=== PATIENT | female | born 1995 | race Caucasian/White ===

== ENCOUNTER 2019-09-14 10:30 | Inpatient (IN) | payer BC ==
[~2019-09-14] VITALS: Ht 160 cm; Wt 66.6 kg
[~2019-09-14 10:30] MED LIST: DOCU-144 PO; IBUP-1542 PO
[2019-09-14] MEDS ORDERED: LACTATED RINGER'S 1,000 ML IV PRN (11:32)
[2019-09-14 11:34] VITALS: Ht 160 cm; Wt 66.6 kg
[2019-09-14] MEDS ORDERED: LIDOCAINE 1% (MPF) 30 ML INJ INJ PRN (12:00)
[2019-09-14] MEDS ORDERED: OXYTOCIN 30 UNITS/LR 500 ML IV PRN (12:00)
[2019-09-14] MEDS ORDERED: CARBOPROST 250 MCG INJ IM PRN (12:00)
[2019-09-14] MEDS ORDERED: MINERAL OIL LIGHT 10 ML VIAL TOP PRN (12:00)
[2019-09-14] MEDS ORDERED: OXYTOCIN 30 UNITS/LR 500 ML IV SCH ×3 (12:00→22:30)
[2019-09-14] MEDS ORDERED: MISOPROSTOL 200 MCG TAB PR PRN (12:00)
[2019-09-14] MEDS ORDERED: AMPICILLIN 2 GM/NS (PMX) 100 ML IV ONE (12:00)
[2019-09-14] MEDS ORDERED: IBUPROFEN 600 MG TAB PO PRN (12:00)
[2019-09-14] MEDS ORDERED: BUTORPHANOL 2 MG INJ IV PRN ×2 (12:00)
[2019-09-14] MEDS ORDERED: METHYLERGONOVINE 0.2 MG INJ IM PRN (12:00)
[2019-09-14] MEDS ORDERED: MISOPROSTOL 50 MCG CAPSULE PO SCH (14:00)
[2019-09-14] MEDS ORDERED: FENTAnyl 2MCG/ML-ROPIV 0.2% 100 ML ONE (18:10)
[2019-09-14] MEDS: AMPICILLIN 1 GM/NS (PMX) 50 ML IV SCH ×2 (18:20→22:08)
[2019-09-14] MEDS: LACTATED RINGER'S 1,000 ML IV SCH ×2 (18:22→22:08)
[2019-09-14] MEDS ORDERED: TRIMETHOBENZAMIDE 100 MG/ML VIAL IM PRN (18:30)
[2019-09-14] MEDS ORDERED: DIPHENHYDRAMINE 50 MG INJ IV PRN (18:30)
[2019-09-14] MEDS ORDERED: NALOXONE (0.4 MG/ML) INJ IV PRN (18:30)
[2019-09-14] MEDS ORDERED: FENTAnyl 2MCG/ML-ROPIV 0.2% 100 ML BAG EPI SCH (18:30)
[2019-09-14] MEDS ORDERED: ONDANSETRON 4 MG INJ IV PRN (18:30)
[2019-09-15] MEDS: AMPICILLIN 1 GM/NS (PMX) 50 ML IV SCH (01:56)
[2019-09-15] MEDS ORDERED: OXYTOCIN 30 UNITS/LR 500 ML IV SCH (03:20)
[2019-09-15] MEDS ORDERED: SENNA/DOCUSATE NA (8.6MG/50MG) TAB PO PRN (03:30)
[2019-09-15] MEDS ORDERED: NACL 0.9% 3 ML SYG IV SCH (03:30)
[2019-09-15] MEDS ORDERED: BENZOCAINE 20% 56 ML SPRAY TOP PRN (03:30)
[2019-09-15] MEDS ORDERED: METHYLERGONOVINE 0.2 MG INJ IM PRN (03:30)
[2019-09-15] MEDS ORDERED: MISOPROSTOL 200 MCG TAB PR PRN (03:30)
[2019-09-15] MEDS ORDERED: WITCH HAZEL/GLYCERIN PAD PR PRN (03:30)
[2019-09-15] MEDS ORDERED: OXYTOCIN 30 UNITS/LR 500 ML IV PRN (03:30)
[2019-09-15] MEDS ORDERED: CARBOPROST 250 MCG INJ IM PRN (03:30)
[2019-09-15] MEDS ORDERED: ONDANSETRON 4 MG INJ IV PRN (03:30)
[2019-09-15] MEDS ORDERED: ACETAMINOPHEN 325 MG TAB PO PRN (03:30)
[2019-09-15 04:50] VITALS: BP 122/79; PULSE 63; RESP 18
[2019-09-15] MEDS: LANOLIN HPA 1 PKT TOP PRN (05:35)
[2019-09-15] MEDS: IBUPROFEN 600 MG TAB PO SCH ×4 (05:35→23:37)
[2019-09-15] MEDS: LACTATED RINGER'S 1,000 ML IV SCH (07:55)
[2019-09-15 08:30] VITALS: BP 108/68; PULSE 73; RESP 18
[2019-09-15] MEDS: SENNA/DOCUSATE NA (8.6MG/50MG) TAB PO SCH ×2 (09:15→21:18)
[2019-09-15 12:15] VITALS: BP 115/79; PULSE 62; RESP 18
[2019-09-15 16:00] VITALS: BP 95/56; PULSE 66; RESP 18
[2019-09-15 20:30] VITALS: BP 107/67; PULSE 68; RESP 18
[2019-09-16 04:11] VITALS: BP 109/67; PULSE 62; RESP 18
[2019-09-16] MEDS: IBUPROFEN 600 MG TAB PO SCH ×4 (06:02→23:47)
[2019-09-16] MEDS: LANOLIN HPA 1 PKT TOP PRN ×2 (08:44→12:50)
[2019-09-16] MEDS: SENNA/DOCUSATE NA (8.6MG/50MG) TAB PO SCH ×2 (08:44→21:40)
[2019-09-16 09:07] VITALS: BP 101/71; PULSE 62; RESP 18
[2019-09-16 16:00] VITALS: BP 102/57; PULSE 65; RESP 18
[2019-09-16 20:50] VITALS: BP 108/65; PULSE 71; RESP 17
[2019-09-17 04:00] VITALS: BP 102/73; PULSE 73; RESP 18
[2019-09-17] MEDS: IBUPROFEN 600 MG TAB PO SCH ×3 (06:14→17:37)
[2019-09-17 08:00] VITALS: BP 111/72; PULSE 79; RESP 18
[2019-09-17] MEDS: SENNA/DOCUSATE NA (8.6MG/50MG) TAB PO SCH (09:28)
[2019-09-17 16:00] VITALS: BP 111/67; PULSE 98; RESP 18
== END 2019-09-17 18:00 | disposition home or self-care (01) | DRG 807 ==
LOC: L-D 10:31 → PP1 09-15 04:48
PROVIDERS: ADMIT Obstetrics & Gynecology; ATTEND Obstetrics & Gynecology
PROC: 10E0XZZ Delivery of Products of Conception, External Approach (ICD-10-PCS; principal; 2019-09-15)
DX: O80 Encounter for full-term uncomplicated delivery (principal); Z37.0 Single live birth; Z3A.37 37 weeks gestation of pregnancy
CPT/HCPCS: 62322; 76815; 85025; 85610; 85730; 86592; 86850; 86870; 86885; 86900; 86901; 87340; J0290; J2590; J2790; J3010; J7120